=== PATIENT | male | born 1990 | race Caucasian/White ===

== ENCOUNTER 2016-12-08 10:51 | Emergency (ER) | payer BC ==
--- NOTE | ~2016-12-08 | ER ---
PATIENT'S NAME: FORREST BLANKENSHIP [facility] AGE: 26 Y [address] ROOM: [place] [address] LOCATION: ED ADMIT DATE: 12/08/2016 ER/Outpatient Report DISCHARGE DATE: 12/08/2016 FAMILY PHYSICIAN: PHYSICIAN, NO ATTENDING PHYSICIAN: Taran Curtis Time of Arrival: 1051 hours. Time of Evaluation: 1108 hours. IDENTIFICATION: A 26-year-old male. CHIEF COMPLAINT: Abdominal pain. HISTORY OF PRESENT ILLNESS: The patient describes abdominal pain. Stating "it feels like I have 100 pounds in my stomach." When I asked him to describe what is going on, he said to see what was written on the paper as he did not want to go all over it again. When I specifically asked him questions, he said he has had nausea, vomited vomit "a little bit at work on Sunday." He has had diarrhea since last week "some time." He describes 6-10 watery stools. No blood. No recent travel. No uncooked meats. No new pets, but he has had no bowel movement since Sunday. 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 Last week, he had fever and chills. No fever and chills this week. He came to the ER last year for "acid reflux," but states he was not put on anything for acid at that time; although in looking through the records, he was prescribed Prevacid. ALLERGIES: NO KNOWN DRUG ALLERGIES. CURRENT MEDICATIONS: No medications. MEDICAL PROBLEMS: No Medical problems, no hospitalizations or surgeries. SOCIAL HISTORY: The patient is . Lives here in [place]. Tobacco use, he chews 2 cans every 5 days. Alcohol use, occasional. Drug use, denies. REVIEW OF SYSTEMS: All systems reviewed and negative other than what is noted in the HPI. PATIENT'S NAME: FORREST BLANKENSHIP [facility] AGE: 26 Y [address] ROOM: [place] [address] LOCATION: ED ADMIT DATE: 12/08/2016 ER/Outpatient Report DISCHARGE DATE: 12/08/2016 FAMILY PHYSICIAN: PHYSICIAN, SONJA ATTENDING PHYSICIAN: Taran Curtis FAMILY HISTORY: No pertinent family history identified. PHYSICAL EXAMINATION: VITAL SIGNS: Height 6 feet 0 inches, weight 75.7 kg, blood pressure 127/78, pulse 74, respirations 17, temp 97.5, sats 99%. GENERAL: A 26-year-old male, in no acute distress. HEENT: Unremarkable. LUNGS: Clear to auscultation. HEART: Regular rate and rhythm. ABDOMEN: Soft, nondistended. Bowel sounds present. Tender to palpation with voluntary guarding. No rebound noted. No CVA tenderness. SKIN: [place], warm, and dry. No lesions or rashes noted. NEURO: No focal deficit. No lower extremity edema. No calf tenderness. LABORATORY DATA AND X-RAYS: Three-way abdomen, no free air, moderate stool present, lungs are clear. CT scan of abdomen and pelvis with IV contrast, slightly prominent tip of the appendix without inflammatory changes, probably normal per Radiology. He also has constipation. IMPRESSION: Constipation. PLAN: Prominent tip of the appendix was relayed to the patient. He has no white count. No fever. Chemistry panel, amylase, lipase, and CBC are all within normal limits as well as urinalysis. I did advise that if he has pain localizing to the right lower quadrant, to please come back in right away. Constipation handout provided. Magnesium citrate as directed or Colace 100 mg b.i.d. and MiraLAX 17 g daily. Follow up with Dr. Marcum in 1 to 3 days. TAARN CURTIS MD CAR/modl /[id number] d: 12/08/[id number] t: 12/11/16 0750, OUTPATIENT REPORT
[2016-12-08 11:55] LABS: BASOPHIL % 0.4 %; EOSINOPHIL # 0.1 K/uL (0.0-0.5); EOSINOPHIL % 1.6 %; HEMATOCRIT 43.3 % (37.0-53.0); HEMOGLOBIN 14.7 g/dL (12.0-17.0); IMMATURE GRANULOCYTE % 0.3 %; LYMPHOCYTE # 1.3 K/uL (0.8-4.0); LYMPHOCYTE % 18.1 %; MCH 30.6 pg (27.0-34.0); MCHC 33.9 gm/dL (32.0-36.5); MONOCYTE # 0.5 K/uL (0.0-1.0); MONOCYTE % 6.6 %; MPV 9.8 fl (9.4-12.4); NEUTROPHIL # (ANC) 5.3 K/uL (1.4-9.0); NRBC % 0 /100WBC (0-0.00); PLATELET COUNT 288 K/uL (150-450); RBC 4.81 M/uL (4.00-6.00); RDW-CV 12.3 % (11.9-14.6); WBC 7.3 K/uL (4.0-11.0)
[2016-12-08 12:09] LABS: BILIRUBIN URINE NEGATIVE (NEGATIVE); BLOOD URINE NEGATIVE /UL (NEGATIVE); COLOR URINE YELLOW (YELLOW); GLUCOSE URINE NEGATIVE (NEGATIVE); KETONE URINE NEGATIVE (NEGATIVE); LEUKOCYTES URINE NEGATIVE /UL (NEGATIVE); NITRITE URINE NEGATIVE (NEGATIVE); PROTEIN URINE NEGATIVE (NEGATIVE); SPEC GRAVITY URINE 1.015 (1.003-1.035); TURBIDITY URINE CLEAR (CLEAR); UROBILINOGEN URINE NORMAL (NORMAL)
[2016-12-08 12:12] LABS: ALBUMIN 4.1 gm/dL (3.5-5.0); ALK PHOS 77 IU/L (33-138); ALT 24 IU/L (12-78); ANION GAP 10.1 (10.0-19.0); AST 22 IU/L (10-40); BLOOD UREA NITROGEN 10 mg/dL (6-24); CALCIUM 8.6 mg/dL (8.5-10.5); CHLORIDE 108 mMol/L (96-110); CO2 28 mMol/L (22-32); ESTIMATED GFR (MDRD EQUATION) > 60; POTASSIUM 4.1 mMol/L (3.7-5.1); SODIUM 142 mMol/L (135-145); TOTAL BILIRUBIN 0.5 mg/dL (0.0-1.5); TOTAL PROTEIN 8.2 g/dL (6.0-8.4)
== END 2016-12-08 13:54 | disposition disaster alternative care site (69) ==
LOC: GMED 10:51
PROVIDERS: Family Medicine
DX: K59.00 Constipation, unspecified (principal); F17.220 Nicotine dependence, chewing tobacco, uncomplicated
CPT/HCPCS: Q9967